=== PATIENT | male | born 1970 | race Caucasian/White ===

== ENCOUNTER 2022-03-27 17:39 | Emergency (ER) | payer MEDICARE, SELFPAY ==
--- NOTE | 2022-03-27 17:39 | ECG_ITS ---
APPROVED REPORT Exam: Resting ECG HR:77 bpm ECG Measurements Heart Rate 77 AXES GA 146 P 55 QRSd 88 QRS 48 QT 361 T 52 QTc 393 Conclusion SINUS RHYTHM NORMAL ECG UNCONFIRMED REPORT Electronically signed by : Nader Rodriguez MD 03/30/2022 14:07:38
[2022-03-27 17:43] VITALS: BP 140/75; PULSE 80; RESP 18; TEMP 36.7; O2SAT 95; BMI 32.5
--- NOTE | 2022-03-27 17:44 | [facility].EDGENADL ---
ED Disposition Clinical Impression: Vasovagal syncope Disposition: Home, Self-Care Condition on Discharge: Good Instructions: DI for Syncope in Adults (Fainting) Additional Instructions: Rest and drink plenty of fluids tonight. Return to the emergency department if fainting returns or if you develop any new symptoms such as chest pain or shortness of breath. Results for follow-up of your diabetes with your primary care provider: Blood sugar was 123, hemoglobin A1c was 5.1. Referrals: Provider,Referral, [Primary Care Provider] - - Critical Care Critical Care Time: No Attestation: On , the high probability of a clinically significant, sudden or life threatening deterioration of the following system(s) required my full and direct attention, intervention and personal management. The time I documented below is in addition to time spent performing reported procedures but includes the following listed in this critical care notation. Medical Decision Making - [facility] Inquiry Pt receiving controlled substance: No Vital Signs: 03/27/22 17:43 03/27/22 18:17 03/27/22 19:00 Temperature 98.1 F Temperature Source Oral Pulse Rate 73 69 Pulse Rate [Left Radial] 80 Respiratory Rate 18 17 15 Blood Pressure 120/75 127/78 Blood Pressure [Right Arm] 140/75 Blood Pressure Mean 82 Blood Pressure Mean [Right Arm] 96 Blood Pressure Source [Right Arm] Automatic Cuff Blood Pressure Position [Right Arm] Sitting 02 Sat by Pulse Oximetry 95 95 97 Oxygen Delivery Method Room Air Room Air - Lab Data Lab Results 03/27/22 17:45: WBC 7.9, RBC 4.82, Hgb 14.3, Hct 44.8, MCV 93.0, MCH 29.8, MCHC 32.0, RDW 14.5, Plt Count 267, MPV 8.6, Neut % (Auto) 49.3, Lymph % (Auto) 38.3, Gove % (Auto) 6.8, Eos % (Auto) 3.8, Baso % (Auto) 1.9, Neut # (Auto) 3.9, Lymph # (Auto) 3.0, Gove # (Auto) 0.5, Eos # (Auto) 0.3, Baso # (Auto) 0.2 03/27/22 17:45: Sodium 138, Potassium 3.8, Chloride 104, Carbon Dioxide 26, Anion Gap 11.8, BUN 12, Creatinine 1.10, Estimated Creat Clear 121, Estimated GFR 70, Est GFR ( Amer) 85, Glucose 123 H, Calcium 9.1, Total Bilirubin 0.4, AST 24, ALT 24, Alkaline Phosphatase 71, Troponin I < 0.01, Total Protein 6.7, Albumin 4.2, Globulin 2.5, Albumin/Globulin Ratio 1.7 03/27/22 17:45: Hemoglobin A1c 5.1 Result diagrams: 03/27/22 17:45 03/27/22 17:45 Orders (Tests/Meds): ORDERS Category Date Time Status Troponin I Q3H Lab 03/27/22 20:45 Ordered Troponin I Q3H Lab 03/27/22 23:45 Ordered - Radiology Data #1 Image(s): Chest Image Reviewed: Yes I reviewed the patient's radiology image, Yes I have reviewed radiologist's interpretation Procedure(s): XR chest 2V Accession Number(s): [id number] cc: Santos Ge MD~ PROCEDURE INFORMATION: Exam: XR Chest Exam date and time: 03/27/22 05:53 PM Age: 52 years old Clinical indication: Other: Syncope TECHNIQUE: Imaging protocol: Radiologic exam of the chest. Views: 2 views. COMPARISON: No relevant prior studies available. FINDINGS: Lungs: Unremarkable. No consolidation. Pleural spaces: Unremarkable. No pleural effusion. No pneumothorax. Heart/Mediastinum: Unremarkable. No cardiomegaly. Bones/joints: Unremarkable. IMPRESSION: No acute findings. - ECG Data Tracing #1 EKG interpreted by Ajay Anguiano MD: Rhythm: sinus Rate: 77 [place]: normal Ectopy: none Conduction: normal ST Segment Changes: none T Wave Changes: none Q Waves: none No evidence of acute ischemia or injury Normal electrocardiogram General Adult HPI - General Stated complaint: syncope Time Seen by Provider: 03/27/22 17:50 - History of Present Illness HPI narrative: The patient is brought down from the inpatient [facility] for syncopal episode. He was visiting his son who is hospitalized. He was sitting in a chair and his other son, who is with him in t
[2022-03-27 17:45] VITALS: BMI 32.5
[2022-03-27 17:53] LABS: Basophils # 0.2 K/mm3 (0-0.2); Basophils % 1.9 % (0.1-2.0); Eosinophils # 0.3 K/mm3 (0.0-0.4); Eosinophils % 3.8 % (0.1-12.0); Hematocrit 44.8 % (42.0-52.0); Hemoglobin 14.3 g/dL (14.1-18.0); Lymphocytes % 38.3 % (10-50); Mean Corpuscular Hemoglobin 29.8 pg (27.0-31.2); Mean Platelet Volume 8.6 fl (7.4-10.4); Monocytes # 0.5 K/mm3 (0.1-1.0); Monocytes % 6.8 % (1.7-9.3); Neutrophils # 3.9 K/mm3 (1.8-7.8); Neutrophils % 49.3 % (37.0-80.0); Platelet Count 267 K/mm3 (142-424); Red Blood Count 4.82 M/mm3 (4.60-6.20); Red Cell Distribution Width 14.5 % (11.5-17.5); White Blood Count 7.9 K/mm3 (4.8-10.8)
[2022-03-27 18:02] LABS: Alanine Aminotransferase 24 U/L (12-78); Albumin Level 4.2 g/dl (3.5-5.0); Albumin/Globulin Ratio 1.7 (1.1-1.8); Alkaline Phosphatase 71 U/L (38-126); Anion Gap 11.8 mEq/L (5-15); Aspartate Amino Transferase 24 U/L (17-59); Bilirubin,Total 0.4 mg/dl (0.2-1.3); Blood Urea Nitrogen 12 mg/dl (9-20); Calcium 9.1 mg/dl (8.4-10.2); Carbon Dioxide 26 mmol/L (22.0-30.0); Chloride 104 mmol/L (98-107); Creatinine Clearance Estimated 121 mL/min (50-200); Estimated Glomerular Filt Rate 70 ml/min (>60); GFR (African American) 85 ML/MIN (>60); Globulin 2.5 g/dL (1.3-3.2); Glucose 123 mg/dl (74-100); Potassium 3.8 mmoL/L (3.5-5.1); Sodium 138 mmol/L (136-145); Total Protein,Serum 6.7 g/dl (6.3-8.2)
[2022-03-27 18:16] LABS: Hemoglobin A1C 5.1 % (4.0-6.0); Troponin I < 0.01 ng/ml (0.00-0.034)
[2022-03-27 18:17] VITALS: BP 120/75; PULSE 73; RESP 17; O2SAT 95
[2022-03-27 19:00] VITALS: BP 127/78; PULSE 69; RESP 15; O2SAT 97
[2022-03-27 19:38] VITALS: BP 127/80; PULSE 79; RESP 18; TEMP 36.8; O2SAT 99
== END 2022-03-27 19:48 | disposition home or self-care (01) ==
PROVIDERS: Emergency Provider Emergency Medicine
DX: R55 Syncope and collapse (principal); R19.7 Diarrhea, unspecified
CPT/HCPCS: 71046; 80053; 83036; 84484; 85025; 93005; 99285